=== PATIENT | female | born 1935 | race Caucasian/White ===

== ENCOUNTER 2019-03-14 09:45 | Inpatient (IN) | payer OTHER ==
[2019-03-14] MEDS: SOD CHLORIDE 0.9% 1,000 ML IV (11:08)
[2019-03-14] MEDS: INSULIN REGULAR, HUMAN 100 UNIT/1 ML 3ML VIAL SC (11:26)
[2019-03-14] MEDS: NEOMYC/POLYMYX/BACIT 30 GM OINT (12:17)
[2019-03-14] MEDS: POLYMYXIN/BACITRACIN 1L IRRIG (12:17)
[2019-03-14] MEDS ORDERED: ROPIVACAINE 0.2% 20 ML VIAL (12:27)
[2019-03-14] MEDS ORDERED: PROPOFOL 100 ML (12:27)
[2019-03-14] MEDS ORDERED: CEFAZOLIN 1 GM INJ (12:27)
[2019-03-14] MEDS ORDERED: FENTAnyl 50 MCG/ML VIAL (12:27)
[2019-03-14] MEDS ORDERED: PHENYLephrine (100 MCG/ML) 10ML SYG (12:30)
[2019-03-14] MEDS ORDERED: TRANEXAMIC ACID 1GM/100ML(PMX) 200 ML (12:50)
[2019-03-14] MEDS ORDERED: HETASTARCH 6% NACL 500 ML (12:57)
[2019-03-14] MEDS ORDERED: DEXAMETHASONE 4 MG/ML 5 ML INJ (13:30)
[2019-03-14] MEDS ORDERED: METOCLOPRAMIDE 10 MG INJ (13:30)
[2019-03-14] MEDS ORDERED: ONDANSETRON 4 MG INJ (13:30)
[2019-03-14] MEDS ORDERED: METOCLOPRAMIDE 10 MG INJ IV (14:00)
[2019-03-14] MEDS ORDERED: HYDROmorphONE 1 MG/5 ML IV SYRINGE IV ×2 (14:00)
[2019-03-14] MEDS ORDERED: OXYCODONE/ACETAMINOPHEN (5/325) TAB PO (14:00)
[2019-03-14] MEDS ORDERED: hydrALAzine 20 MG INJ IV (14:00)
[2019-03-14] MEDS ORDERED: NALOXONE (0.4 MG/ML) INJ IV ×3 (14:00→14:30)
[2019-03-14] MEDS ORDERED: morphine 2 MG INJ IV ×2 (14:00)
[2019-03-14] MEDS ORDERED: HYDROmorphONE 0.5 MG/0.5 ML SYG IV ×3 (14:00→18:00)
[2019-03-14] MEDS ORDERED: ALBUMIN HUMAN 5% 250 ML IV (14:00)
[2019-03-14] MEDS ORDERED: ONDANSETRON 4 MG INJ IV ×2 (14:00)
[2019-03-14] MEDS ORDERED: HYDROCODONE/APAP (5/325) TAB PO (14:00)
[2019-03-14] MEDS ORDERED: MEPERIDINE 25 MG INJ IV (14:00)
[2019-03-14] MEDS ORDERED: DIPHENHYDRAMINE 50 MG INJ IV ×2 (14:00)
[2019-03-14] MEDS ORDERED: EPHEDrine 25 MG/5 ML SYG IV (14:00)
[2019-03-14] MEDS ORDERED: LABETALOL HCL 20MG INJ IV (14:00)
[2019-03-14] MEDS ORDERED: ACETAMINOPHEN 500 MG TAB PO (14:00)
[2019-03-14] MEDS ORDERED: FENTAnyl 50 MCG/ML VIAL IV ×2 (14:00)
[2019-03-14] MEDS ORDERED: NALBUPHINE HCL (10 MG/1 ML) INJ IV (14:00)
[2019-03-14] MEDS ORDERED: MAGNESIUM HYDROXIDE 30ML CUP PO (14:30)
[2019-03-14] MEDS ORDERED: BISACODYL 10 MG SUPP PR (14:30)
[2019-03-14] MEDS ORDERED: NA PHOSPHATE/BIPHOS 133 ML ENEMA PR (14:30)
[2019-03-14] MEDS ORDERED: NACL 0.9% 3 ML SYG IV (14:30)
[2019-03-14] MEDS ORDERED: SENNA/DOCUSATE NA (8.6MG/50MG) TAB PO (14:30)
[2019-03-14] MEDS: DOCUSATE SODIUM 100 MG CAP PO (15:41)
[2019-03-14] MEDS: CEFAZOLIN 2 GM/50 ML (PMX) 50 ML IVPB ×2 (15:46→22:36)
[2019-03-14] MEDS ORDERED: GLUCOSE GEL 15 GRAM TUBE PO ×2 (16:00)
[2019-03-14] MEDS ORDERED: DEXTROSE 50% 50 ML SYRINGE IV ×2 (16:00)
[2019-03-14] MEDS ORDERED: GLUCAGON 1 MG INJ IM (16:00)
[2019-03-14] MEDS ORDERED: GLUCOSE GEL 15 GRAM TUBE BUCCAL (16:00)
[2019-03-14] MEDS: INSULIN ASPART [NOVOLOG] 3 ML PEN SC ×2 (17:55→21:07)
[2019-03-14] MEDS: HYDROmorphONE 0.5 MG/0.5 ML SYG IV ×2 (18:51→22:36)
[2019-03-14] MEDS ORDERED: SIMVASTATIN 20 MG PO (21:00)
[2019-03-14] MEDS: ATORVASTATIN 10 MG TAB PO (21:04)
[2019-03-14] MEDS: ASPIRIN 325 MG TAB PO (21:04)
[2019-03-14] MEDS: morphine 2 MG INJ IV (21:04)
[2019-03-15] MEDS: morphine 2 MG INJ IV ×2 (00:57→08:27)
[2019-03-15] MEDS: ACCU-CHEK XX (02:00)
[2019-03-15 05:14] LABS: ADD MAN DIFF? NO
[2019-03-15 05:17] LABS: WHITE BLOOD COUNT 14.8 10^3/ul (4.8-10.8)
[2019-03-15 05:17] LABS: ABNORMAL IP MESSAGE 1; BASOPHILS % 0.1 % (0.0-2.0); HEMOGLOBIN 11.2 g/dl (12.0-16.0); LYMPHOCYTES # 0.4 10^3/ul (0.8-2.9); LYMPHOCYTES % 2.7 % (15.0-51.0); MEAN CORPUSCULAR HEMOGLOBIN 30.9 pg (29.0-33.0); MEAN CORPUSCULAR HGB CONC 33.9 g/dl (32.0-37.0); MEAN CORPUSCULAR VOLUME 91.2 fl (82.0-101.0); MEAN PLATELET VOLUME 9.9 fl (7.4-10.4); MONOCYTE # 1.1 10^3/ul (0.3-0.9); MONOCYTES % 7.7 % (0.0-11.0); NEUTROPHIL # 13.2 10^3/ul (1.6-7.5); PLATELET COUNT 227 10^3/UL (140-415); RED BLOOD COUNT 3.62 10^6/ul (4.20-5.40); RED CELL DISTRIBUTION WIDTH 11.7 % (11.5-14.5)
[2019-03-15 05:26] LABS: POSITIVE DIFF @See below
[2019-03-15 05:40] LABS: ANION GAP 9 (5-13); BLOOD UREA NITROGEN 15 mg/dl (7-20); CALCIUM 8.2 mg/dl (8.4-10.2); CARBON DIOXIDE 23 mmol/L (21-31); CHLORIDE 98 mmol/L (97-110); CREATININE 0.71 mg/dl (0.44-1.00); GLUCOSE 275 mg/dl (70-220); POTASSIUM 3.9 mmol/L (3.5-5.1); SODIUM 130 mmol/L (135-144)
[2019-03-15] MEDS: DOCUSATE SODIUM 100 MG CAP PO ×2 (08:26→20:19)
[2019-03-15] MEDS: LISINOPRIL 20 MG TAB PO (08:27)
[2019-03-15] MEDS: ASPIRIN 325 MG TAB PO ×2 (08:27→20:19)
[2019-03-15] MEDS: INSULIN ASPART [NOVOLOG] 3 ML PEN SC ×4 (08:37→21:14)
[2019-03-15] MEDS ORDERED: PIOGLITAZONE 45 MG TAB PO (10:00)
[2019-03-15] MEDS: metFORMIN 500 MG TAB PO ×2 (10:46→17:44)
[2019-03-15] MEDS: SOD CHLORIDE 0.9% 1,000 ML IV (10:50)
[2019-03-15] MEDS: HYDROCODONE/APAP (5/325) TAB PO ×3 (11:07→18:39)
[2019-03-15] MEDS ORDERED: ONDANSETRON 4 MG INJ IV (12:30)
[2019-03-15] MEDS ORDERED: hydrALAzine 20 MG INJ IV (12:30)
[2019-03-15] MEDS: ATORVASTATIN 10 MG TAB PO (20:19)
[2019-03-15] MEDS: GABAPENTIN 300 MG CAP PO (21:10)
[2019-03-15] MEDS: KETOROLAC 30 MG INJ IV (21:10)
[2019-03-16] MEDS: ACCU-CHEK XX (01:56)
[2019-03-16] MEDS: HYDROCODONE/APAP (5/325) TAB PO ×2 (05:11→19:43)
[2019-03-16] MEDS: PANTOPRAZOLE (EC) 40 MG TAB PO (05:11)
[2019-03-16 06:05] LABS: ADD MAN DIFF? NO; BASOPHILS % 0.3 % (0.0-2.0); EOSINOPHILS # 0.2 10^3/ul (0.0-0.5); EOSINOPHILS % 1.8 % (0.0-7.0); HEMATOCRIT 28.5 % (37.0-47.0); HEMOGLOBIN 9.8 g/dl (12.0-16.0); LYMPHOCYTES # 1.2 10^3/ul (0.8-2.9); LYMPHOCYTES % 10.4 % (15.0-51.0); MEAN CORPUSCULAR HEMOGLOBIN 31.2 pg (29.0-33.0); MEAN CORPUSCULAR HGB CONC 34.4 g/dl (32.0-37.0); MEAN CORPUSCULAR VOLUME 90.8 fl (82.0-101.0); MEAN PLATELET VOLUME 10.2 fl (7.4-10.4); MONOCYTES % 8.3 % (0.0-11.0); NEUTROPHIL # 9.3 10^3/ul (1.6-7.5); NEUTROPHILS % 78.5 % (39.0-77.0); PLATELET COUNT 183 10^3/UL (140-415); RED BLOOD COUNT 3.14 10^6/ul (4.20-5.40); RED CELL DISTRIBUTION WIDTH 11.9 % (11.5-14.5)
[2019-03-16 06:05] LABS: WHITE BLOOD COUNT 11.9 10^3/ul (4.8-10.8)
[2019-03-16 06:21] LABS: PHOSPHORUS 3.2 mg/dl (2.5-4.9)
[2019-03-16 06:21] LABS: MAGNESIUM 1.5 mg/dl (1.7-2.5)
[2019-03-16 06:33] LABS: ANION GAP 4 (5-13); BLOOD UREA NITROGEN 18 mg/dl (7-20); CALCIUM 8.3 mg/dl (8.4-10.2); CARBON DIOXIDE 29 mmol/L (21-31); CHLORIDE 91 mmol/L (97-110); CREATININE 0.94 mg/dl (0.44-1.00); GLUCOSE 204 mg/dl (70-220); SODIUM 124 mmol/L (135-144)
[2019-03-16] MEDS: DOCUSATE SODIUM 100 MG CAP PO ×2 (08:43→20:40)
[2019-03-16] MEDS: INSULIN ASPART [NOVOLOG] 3 ML PEN SC ×4 (08:43→21:04)
[2019-03-16] MEDS: ASPIRIN 325 MG TAB PO ×2 (08:43→20:40)
[2019-03-16] MEDS: LISINOPRIL 20 MG TAB PO (08:44)
[2019-03-16] MEDS: GABAPENTIN 300 MG CAP PO ×3 (08:44→20:41)
[2019-03-16] MEDS: PIOGLITAZONE 15 MG TAB PO (08:44)
[2019-03-16] MEDS: GLIMEPIRIDE 2 MG TAB PO (08:45)
[2019-03-16] MEDS: metFORMIN 500 MG TAB PO ×2 (08:47→18:23)
[2019-03-16] MEDS: SOD CHLORIDE 0.9% 500 ML IV (14:18)
[2019-03-16] MEDS: MAGNESIUM OXIDE 400 MG TAB PO ×2 (15:03→20:41)
[2019-03-16] MEDS: ATORVASTATIN 10 MG TAB PO (20:41)
== END 2019-03-16 23:25 | DRG 470 ==
LOC: REC 09:45 → MS1 17:03
PROVIDERS: Specialist
PROC: 0SRD069 Replacement of Left Knee Joint with Oxidized Zirconium on Polyethylene Synthetic Substitute, Cemented, Open Approach (ICD-10-PCS; principal; 2019-03-14 12:00)
DX: M17.12 Unilateral primary osteoarthritis, left knee (principal); E87.1 Hypo-osmolality and hyponatremia; E11.36 Type 2 diabetes mellitus with diabetic cataract; E11.51 Type 2 diabetes mellitus with diabetic peripheral angiopathy without gangrene; D64.9 Anemia, unspecified; E86.1 Hypovolemia; I10 Essential (primary) hypertension; E78.5 Hyperlipidemia, unspecified; H26.9 Unspecified cataract; R11.0 Nausea; Z79.4 Long term (current) use of insulin; Z79.82 Long term (current) use of aspirin
CPT/HCPCS: 80048; 82962; 83735; 84100; 85025; 87086; 88304; 88311; 97110; 97116; 97162; 97530